=== PATIENT | male | born 1975 | race Caucasian/White ===

== ENCOUNTER → 2016-02-27 | Outpatient (CLI) | payer OTHER ==
--- OUTSIDE RECORDS SUMMARY | 2016-02-27 15:03 | XMS REPORT | Continuity of Care Document ---
Author Author [facility] Organization [facility] Address Unknown Phone Unavailable Care Team Providers Care Office Machines Sales Representative Name Role Phone MARK FERRARI DO PCP Insurance Providers Payer Name Policy Number Subscriber Name Relationship [employer] [id number] Ferny Craig 17 Self / Same As Patient Advance Directives Directive Response Recorded Date/Time Advance Directives No 11/17/15 1:28pm Organ Donor Yes 11/17/15 1:28pm Resuscitation Status Full Code 11/17/15 1:28pm Problems No problem information available. Medications No known medications. Social History Social History Problem Response Recorded Date/Time Alcohol Use Occasionally Uses 11/17/2015 1:28pm Recreational Drug Use No 11/17/2015 1:28pm Recent Foreign Travel No 11/17/2015 1:27pm Recent Infectious Disease Exposure No 11/17/2015 1:27pm Smoking Status Current Everyday Smoker 11/17/2015 1:28pm Type Used Cigarettes 11/17/2015 1:28pm Recent Hopitalizations No 11/17/2015 1:28pm Query Response Start Date Stop Date Smoking Status Current Everyday Smoker Hospital Discharge Instructions No hospital discharge instructions. Plan of Care Discharge Date 11/17/15 1:33pm Prescriptions See Medication Section Functional Status No functional status results. Allergies, Adverse Reactions, Alerts No known allergies. Immunizations No immunization records. Vital Signs Acute Vital Signs Vital Response Date/Time Height (Feet) 5 feet 11/17/2015 1:31pm Height (Inches) 11.00 inches 11/17/2015 1:31pm Height (Calculated Centimeters) 180.033643 cm 11/17/2015 1:31pm Weight (Pounds) 195 pounds 11/17/2015 1:31pm Weight (Ounces) 0.0 oz 11/17/2015 1:31pm Weight (Calculated Grams) 26292.51 gm 11/17/2015 1:31pm Weight (Calculated Kilograms) 88.980407 kilograms 11/17/2015 1:31pm Calculated BMI 27.2 11/17/2015 1:31pm Results No known relevant diagnostic tests, laboratory data and/or discharge summary. Procedures No known history of procedures. Encounters Encounter Location Arrival/Admit Date Discharge/Depart Date Attending Provider Departed Clinic [facility] 11/17/15 8:30am 11/17/15 1: 33pm GARCÍA SMITH MD
--- NOTE | 2016-02-27 16:16 | Diagnostic Imaging Report ---
PROCEDURE: MRI left joint lower extremity without contrast. TECHNIQUE: Multiplanar, multisequence non contrast-enhanced MRI of the left lower extremity was accomplished. INDICATION: Left knee pain. FINDINGS: There is a minimal suprapatellar effusion. No Foote's cyst. There is an ACL graft repair with screws in the tibia and femur seen. The ACL graft demonstrates increased signal in some of the fibers distally suggestive of a partial tear. There is mild marrow edema at the undersurface of the tibial spine near the ACL graft tibial insertion. There is otherwise no significant contusion seen. The extensor mechanism demonstrates thickening of the patellar tendon compatible with old injury. No full-thickness tear. The lateral meniscus appears intact. The medial meniscus demonstrates increased signal at its posterior root and deformity of the upper margin of the root fibers suggestive of nondisplaced tear. There is increased signal in the rest of the posterior horn and the body of the medial meniscus without definite extension of the signal to the articular surface to suggest a tear. This may relate to old injury or meniscus degeneration. The MCL is thickened compatible with old injury with no acute abnormality. The lateral collateral ligamentous complex is intact. There is generalized medial and lateral compartment mild cartilage thinning. The cartilage of the patellofemoral compartment appears intact. There is a loculated ganglion cyst measuring 1.2 x 0.4 x 1.5 cm abutting the posterior aspect of the PCL inferiorly. It is probably an intracapsular ganglion cyst. IMPRESSION: 1. Increased signal and irregularity of the posterior root of the medial meniscus may relate to a nondisplaced tear. There is degenerative intrasubstance signal within the posterior horn and body of the medial meniscus with no definite tear. 2. Increased signal in some of the distal fibers of the ACL graft compatible with degeneration or partial tear. No full-thickness tear. Dictated by: Dictated on workstation # [id number]
== END ==
LOC: RAD 15:00
PROVIDERS: ATTEND Nurse Practitioner
DX: M23.262 Derangement of other lateral meniscus due to old tear or injury, left knee (principal)
CPT/HCPCS: 73721

== ENCOUNTER → 2021-08-10 | Outpatient (CLI) | payer OTHER | LOC: CARD 14:45 | PROVIDERS: ATTEND Family Medicine | DX: I49.9 Cardiac arrhythmia, unspecified (principal) | CPT/HCPCS: 93005 ==

== ENCOUNTER 2021-09-19 05:49 | Outpatient (CLI) | payer OTHER ==
[~2021-09-19] VITALS: Ht 180.3 cm; Wt 86.4 kg
== END 2021-09-19 08:59 | disposition home or self-care (01) ==
LOC: PREOP 05:49
PROVIDERS: ATTEND Internal Medicine
DX: Z01.818 Encounter for other preprocedural examination (principal)

== ENCOUNTER 2021-09-28 09:42 | Day surgery (SDC) | payer OTHER ==
--- NOTE | 2021-09-18 20:46 | HISTORY AND PHYSICAL ---
DATE OF SERVICE: COLONOSCOPY HISTORY AND PHYSICAL DATE OF ADMISSION: ____. HISTORY OF PRESENT ILLNESS: The patient is a 46-year-old white male referred by Dr. Mohan for colonoscopy due to about a 2-month history of constipation. He reports that he has noted some intermittent bright red blood per rectum. He denies any past history for any chronic constipation like this. This was not preceded by any type of infectious symptoms and he denies any increased stress. He has had no change in weight. When he does not go for 3 or 4 days, he will have left lower quadrant abdominal pain to the point that he feels weak and sweaty until he has a bowel movement and then symptoms slowly improve after that. He just started 4 to 5 days ago eating apricots, has been taking MiraLax for a few days without changes of yet. He takes an [id number]-dnsvrhq laxative, if that will work, that he will end up with diarrhea and cramping for half a day. During the constipation, he states he does note some abdominal distention. He underwent a colonoscopy on review of his electronic medical record in November of [address] Caceres, whose note only indicates that was done for bowel habit change. He had no evidence for diverticular disease or neoplasia at that time and random biopsies of the colon revealed no evidence for microscopic colitis. His symptoms did begin after he sustained left-sided rib fractures. He reports the bottom ribs on the left, suffered in a fall while he was in [place]. He did take as I recall some narcotic medication for a short period of time, but has only been taking ibuprofen as of late for the past month and only on intermittent basis. PAST MEDICAL HISTORY: Otherwise, noncontributory. PAST SURGICAL HISTORY: Significant for several arthroscopic surgeries involving the knees. FAMILY HISTORY: He is not aware of any family history for GI tract malignancy including colon cancer. Both his brother and his father have required surgery for diverticular disease and recurrent diverticulitis. Dr. Caceres' report indicated no evidence for diverticulum again almost 6 years ago. SOCIAL HISTORY: He works as a schedule marketing planner, does smoke an occasional cigar with no cigarette smoking and reports he averages about six beers per week with no other alcohol consumption. REVIEW OF SYSTEMS: CONSTITUTIONAL: Denies night sweats, chills, fever, change in weight except for chills that experienced when he has not had a bowel movement for three or four days. GASTROINTESTINAL: As noted in the HPI. PULMONARY: Denies cough, wheezing or shortness of breath. CARDIOVASCULAR: Denies orthopnea, PND, pedal edema, syncope or chest pain. PHYSICAL EXAMINATION: GENERAL: Reveals a pleasant white male, who appears to be in no acute distress. VITAL SIGNS: Weight 188 pounds and blood pressure 120/80. HEENT: Mallampati 2 oropharyngeal configuration. Throat is clear. Posterior pharynx clear. CHEST: Clear to auscultation. CARDIOVASCULAR: Reveals regular rate and rhythm without murmur, S3 or S4. ABDOMEN: About 48 hours after his last bowel movement was soft, supple, minimal left lower quadrant discomfort to palpation without rebound or guarding. No mass or organomegaly noted. Bowel sounds are positive. EXTREMITIES: Reveal no cyanosis, clubbing or edema. ASSESSMENT AND PLAN: The patient is being set up for diagnostic colonoscopy due to left lower quadrant abdominal pain, recent onset constipation and bright red blood per rectum. Prep instructions with Plenvu were given and questions were answered. Electronic medical record was reviewed as well as Dr. Mohan's notes. I thank you for the referral of this pleasant gentleman. Job ID: [id number] DocumentID: [id number] Dictated Date: 09/12/2021 17:45:20 Bag Tester Date: 09/12/2021 18:19:29 Dictated By: MARIA E ZHU MD [facility]
[~2021-09-28] VITALS: Ht 180 cm; Wt 86.4 kg
--- NOTE | 2021-09-28 09:48 | Pre-Op Note & Conscious Sedat ---
Pre-Operative Progress Note Date H&P Reviewed: Sep 28, 2021 Time H&P Reviewed: 09:48 History & Physical: H&P Reviewed, Patient Examed, No changes noted Pre-Op Diagnosis: colonoscopy for LLq abd pain and rectal bleeding Conscious Sedation Pre-Proced ASA Score 1 For ASA 3 and 4: Consider anesthesia and medical clearance. Also, for patients with a history of failed moderate sedation consider anesthesia. Airway Lungs Heart ASA score ASA 1: a normal healthy patient ASA 2: a patient with a mild systemic disease (mid diabetes, controlled hypertension, obesity ASA 3: a patient with a severe systemic disease that limits activity (angina, COPD, prior Myocardial infarction) ASA 4: a patient with an incapacitating disease that is a constant threat to life (CHF, renal failure) ASA 5: a moribund patient not expected to survive 24 hrs. (ruptured aneurysm) ASA 6: a declared brain- patient whose organs are being harvested. For emergent operations, add the letter E after the classification Mallampati Classification Grade 2 Sedation Plan Analgesia, Amnesia, Plan communicated to team members, Discussed options with patient/fam, Discussed risks with patient/fam The patient is an appropriate candidate to undergo the planned procedure, sedation, and anesthesia. The patient immediately re-assessed prior to indication. MARIA E ZHU MD Sep 28, 2021 09:48
[2021-09-28] MEDS ORDERED: LACTATED RINGERS 1,000 ML IV STA (09:53)
[2021-09-28 10:00] VITALS: BP 117/85
[2021-09-28] MEDS ORDERED: LACTATED RINGERS 1,000 ML IV ONE (10:01)
[2021-09-28] MEDS ORDERED: PROPOFOL INJECTION 50 ML IV ONE ×2 (10:26→10:43)
[2021-09-28] MEDS ORDERED: MIDAZOLAM 2 MG/2 ML (VERSED) VIAL ONE (10:26)
--- NOTE | 2021-09-28 10:57 | Progress Note-Post Operative ---
Post-Procedure Note Physician (s)/Marketing Mgr (s) Physician MARIA E ZHU MD Pre-Procedure Diagnosis Pre-Procedure Diagnosis: colonoscopy for LLq abd pain and rectal bleeding Post-Procedure Diagnosis Post-operative diagnosis: 3 polyps cauterized rectosigmoid distal sigmoid and proximal ascending colon. No other abnormalities noted MARIA E ZHU MD Sep 28, 2021 10:57
[2021-09-28 11:02] VITALS: BP_SYST 100; BP_SYST 107; BP_DIAS 63; BP_DIAS 67
[2021-09-28 11:07] VITALS: BP 118/83
[2021-09-28 11:10] VITALS: BP 114/71
--- NOTE | 2021-09-28 11:31 | Anesthesia-General Post-Op ---
MAC Patient Condition Mental Status/LOC: Same as Preop Cardiovascular: Satisfactory Nausea/Vomiting: Absent Respiratory: Satisfactory Pain: Controlled Complications: Absent Post Op Complications Complications None Follow Up Care/Instructions Patient Instructions None needed. Anesthesiology Discharge Order Discharge Order Patient is doing well, no complaints, stable vital signs, no apparent adverse anesthesia problems. No complications reported per nursing. MARIA LUZ MONTAÑO CRNA Sep 28, 2021 11:31
[2021-09-28 11:35] VITALS: BP 114/71
--- NOTE | 2021-09-28 17:17 | OPERATIVE REPORT ---
DATE OF SERVICE: COLONOSCOPY SUMMARY INDICATION FOR THE PROCEDURE: Left lower quadrant abdominal pain, rectal bleeding, and constipation. DESCRIPTION OF PROCEDURE: The patient was placed in the left lateral decubitus position. Prior to undergoing colonoscopy, a digital rectal evaluation was performed. Anal sphincter tone was normal with perianal reflexes intact. No evidence for fissure formation was noted on digital inspection or visual inspection, the prostate was unremarkable to digital inspection as well. The colonoscope was then inserted into the rectum and under direct visualization advanced to the cecum. The cecum was identified by identification of the ileocecal valve and cecal strap. Photographic documentation was obtained. A careful inspection was made as colonoscope withdrawn. Quality of prep was good. FINDINGS: No evidence for internal or external hemorrhoids and the rectum was unremarkable. At the rectosigmoid junction was a 4 mm sessile hyperplastic-appearing polyp, was biopsied and ablated and submitted for histopathology. Present in the distal sigmoid colon was a similar appearing 3 mm polyp was biopsied and ablated with no subsequent blood loss. No evidence for diverticular disease was noted. The descending colon, splenic flexure, transverse colon, and hepatic flexure were unremarkable. Present in the proximal ascending colon was a proximal 4 x 12 mm sessile adenomatous appearing polyp, nonulcerated. It was photographed and biopsied and ablated in two subsequent locations. There was no subsequent blood loss. The cecum of the colon was unremarkable. ASSESSMENT: Three polyps were removed, the most significant from the proximal ascending colon with adenomatous features. Provided there are no surprises on histopathology report, we will be recommending repeat surveillance colonoscopy in one year. No other abnormalities were noted on today's colonoscopy to the cecum under good prep conditions. Job ID: [id number] DocumentID: [id number] Dictated Date: 09/28/2021 10:55:10 Receptionist Scheduler Date: 09/28/2021 17:16:06 Dictated By: MARIA E ZHU MD
== END 2021-09-28 11:35 | disposition home or self-care (01) ==
LOC: ENDO 09:42
PROVIDERS: ATTEND Internal Medicine
DX: D12.2 Benign neoplasm of ascending colon (principal); K63.5 Polyp of colon; K59.00 Constipation, unspecified; F17.290 Nicotine dependence, other tobacco product, uncomplicated
CPT/HCPCS: 88305

== ENCOUNTER → 2022-05-13 | Outpatient (CLI) | payer OTHER ==
[~2022-05-13] MED LIST: DIATRIZOATE MEGLUM/SODIUM 37% 120 ML (GASTROGRAFIN) PO ONE; HOLD METFORMIN - RECEIVED CONTRAST 20 ML VIAL IV SCH; IOHEXOL 350 MG/ML 100 ML (OMNIPAQUE 350) VIAL IV ONE; NS 100 ML (IVPB) BAG IV ONE
[2022-05-13 15:27] LABS: ALBUMIN 4.7 GM/DL (3.2-4.5); CHLORIDE 107 MMOL/L (98-107); POTASSIUM 4.2 MMOL/L (3.6-5.0); SODIUM 140 MMOL/L (135-145)
[2022-05-13 15:28] LABS: BASOPHILS # (AUTO) 0.1 10^3/uL (0.0-0.1); BASOPHILS % (AUTO) 1 % (0-10); CALCIUM 9.7 MG/DL (8.5-10.1); EOSINOPHILS # (AUTO) 0.5 10^3/uL (0.0-0.3); EOSINOPHILS % (AUTO) 5 % (0-10); HEMATOCRIT 43 % (40-54); HEMOGLOBIN 14.6 g/dL (13.3-17.7); LYMPHOCYTES # (AUTO) 3.9 10^3/uL (1.0-4.0); LYMPHOCYTES % (AUTO) 35 % (12-44); MEAN CORPUSCULAR HEMOGLOBIN 33 pg (25-34); MEAN CORPUSCULAR HGB CONC 34 g/dL (32-36); MEAN CORPUSCULAR VOLUME 96 fL (80-99); MEAN PLATELET VOLUME 9.3 fL (9.0-12.2); MONOCYTES # (AUTO) 0.8 10^3/uL (0.0-1.0); MONOCYTES % (AUTO) 7 % (0-12); NEUTROPHILS # (AUTO) 5.6 10^3/uL (1.8-7.8); NEUTROPHILS % (AUTO) 52 % (42-75); PLATELET COUNT 248 10^3/uL (130-400); WHITE BLOOD COUNT 10.9 10^3/uL (4.3-11.0)
[2022-05-13 15:29] LABS: GLUCOSE 80 MG/DL (70-105)
[2022-05-13 15:30] LABS: TOTAL PROTEIN 7.4 GM/DL (6.4-8.2)
[2022-05-13 15:31] LABS: BILIRUBIN,TOTAL 0.5 MG/DL (0.1-1.0); CARBON DIOXIDE 21 MMOL/L (21-32)
[2022-05-13 15:33] LABS: ALKALINE PHOSPHATASE 85 U/L (40-136); CREATININE SERUM 0.95 MG/DL (0.60-1.30); GFR ESTIMATED 99
[2022-05-13 15:34] LABS: BUN/CREATININE RATIO 18
[2022-05-13 15:36] LABS: ALANINE AMINOTRANSFERASE 35 U/L (0-55)
--- NOTE | 2022-05-13 16:41 | Diagnostic Imaging Report ---
INDICATION: Abdominal pain TECHNIQUE: Multiple contiguous axial images were obtained through the abdomen and pelvis after administration of intravenous contrast. Auto Exposure Controls were utilized during the CT exam to meet ALARA standards for radiation dose reduction. All CT scans use one or more of the following dose optimizing techniques: automated exposure control, MA and/or KvP adjustment based on patient size and exam type or iterative reconstruction. COMPARISON: There is no prior CT abdomen and pelvis for comparison. The visualized portions of the lung bases show dependent atelectatic changes. There is no pleural fluid or free intraperitoneal air The liver shows a small cyst in the left lobe, is otherwise normal in appearance. Gallbladder appears normal. Spleen, adrenals, and pancreas are normal. There is a small cyst the left kidney superiorly, kidneys are otherwise normal. There is no retroperitoneal mass or adenopathy. There is no ascites or abnormal fluid collection. The visualized bowel loops, including the appendix, are unremarkable. There is no overt bowel obstruction. There is no pelvic mass or lymphadenopathy. IMPRESSION: No acute process visualized in the abdomen or pelvis. Small incidental hepatic cyst and left renal cyst. Dictated by: Dictated on workstation # [id number]
== END ==
LOC: RAD 14:16
PROVIDERS: ATTEND Nurse Practitioner Family
DX: K92.1 Melena (principal)
CPT/HCPCS: 36415; 74177; 80053; 85025